=== PATIENT | male | born 2000 | race Caucasian/White ===

== ENCOUNTER 2023-10-02 06:13 | Day surgery (SDC) | payer BC, SELFPAY ==
[2023-10-02 13:59] VITALS: BMI 20.3
[2023-10-02 14:00] VITALS: BMI 20.3
[2023-10-02 14:01] VITALS: BP 135/79
[2023-10-02 16:49] VITALS: BP 114/64
[2023-10-02 17:00] VITALS: BP 115/51
[2023-10-02 17:15] VITALS: BP 110/64
== END 2023-10-02 17:23 | disposition home or self-care (01) ==
LOC: GI 06:13
PROVIDERS: ATTENDING PHYSICIAN Internal Medicine Gastroenterology
DX: K20.0 Eosinophilic esophagitis (principal)
CPT/HCPCS: 43239; 88305

== ENCOUNTER 2024-06-09 20:52 | Emergency (ER) | payer BC, SELFPAY ==
[2024-06-09 20:55] VITALS: BP 131/63
[2024-06-09 20:56] VITALS: BP 131/63
[2024-06-09 20:59] VITALS: BMI 19.2
[2024-06-09 21:00] VITALS: BP 132/92
--- NOTE | 2024-06-09 21:02 | ED.GENMED ---
History of Present Illness
General
Chief Complaint: Allergic Reaction
Source: patient, records, family and ambulance crew
Exam Limitations: none
Time Seen by Provider: 06/09/24 20:56
Nursing documentation reviewed up to this point in time: agreed with
History of Present Illness
History of Present Illness:
Patient is a 23-year-old male who presents to the emergency department after developing allergic reaction approximately 15 minutes after eating dinner. Patient had Posta that his mother realized after the episode that it was made from [employer] and
patient has a very sensitive peanut and shellfish allergy. Patient began to have problems breathing and swallowing with a diffuse pruritic rash. Patient uses Ventolin inhaler x 2. Paramedics were called and gave the patient 25 of Benadryl after
he received 25 of Benadryl at home. Patient was given a DuoNeb en route. Patient also had an EpiPen. Patient is feeling much better now.
Past History
Past History
ED Past Medical History: Asthma and Other (Seasonal allergies)
Social History
Tobacco: Non-smoker
Review of Systems
Review of Systems
All Other Systems: Not applicable
Phy Exam
Physical Exam
Physical Exam:
Physical Exam
General: mild distress, alert and appropriate, well nourished, well hydrated
HENT: Normocephalic, supple with no lymphadenopathy, no thyromegaly. Oropharynx clear
Eyes: Clear sclera, conjuctiva with injection bilaterally
Heart: Regular rhythm and rate. No S3, S4. No murmur.
Lungs: No respiratory distress, no stridor, lung sounds are coarse with an occasional end expiratory wheeze left greater than right but otherwise equal bilaterally
Abdomen: Soft, nontender, no organomegaly, BS good
Neuro: Alert and oriented x 3, CN II - XII intact, no motor focality, no cerebellar dysfunction
Skin: Mild diffuse erythematous rash
Psychiatric: well kept. interactive and cooperative
Extremities: No edema, cyanosis, tenderness, Good and equal peripheral pulses.
Scores
Heart Failure Risk
Heart Failure Risk Score: Not Applicable
Heart Score for Chest Pain Patients
STEMI patient?: Not applicable
Withdrawal Assessment of Alcohol
Withdrawal Assessment Completed?: Not applicable
Course
Orders/Labs/Results
Orders:
Orders
06/09/24 20:59
EKG [Electrocardiogram (*1)] Urgent
Reason for Study: Bradycardia / Tachycardia
EKG- Treatment ONCE
06/09/24 21:02
0.9% Sodium Chloride 1000 ml [Nss] 1,000 ml IV BOLUS
Dexamethasone Sod Phosphate [Decadron] 20 mg IV NOW STA
Famotidine [Pepcid] 20 mg IV NOW STA
Ipratropium/Albuterol Sulfate [Duoneb] 3 ml INH R NOW STA
Vital Signs
Initial and Last Documented VS:
Initial Vital Signs
Pulse Resp BP Pulse Ox
106 20 131/63 96
06/09/24 20:55 06/09/24 20:55 06/09/24 20:55 06/09/24 20:55
Last Documented Vital Signs
Temp Pulse Resp BP Pulse Ox
98.2 F 81 19 123/70 97
06/09/24 21:02 06/09/24 22:00 06/09/24 22:00 06/09/24 22:00 06/09/24 22:00
*Radiology
Radiology exam reviewed: other (na)
*Pulse Oximetry
Patient hypoxic: no
*EKG
Interpreted by ED Provider?: Yes
EKG Intrepretation Date: 06/09/24
EKG Intrepretation Time: 22:23
Interpretation: normal
Comparison EKG: no comparison EKG present
Heart Rate: 93
Rate: normal
Rhythm: sinus
[place]: indeterminate
Interval: normal interval
QRS Pattern: right bundle branch block (Incomplete)
Ischemia: no ischemia
*Bench Grinder Interpretation
Rate: tachycardiac
Interpretation: normal
Heart Rate: 102
Rhythm: sinus
*Critical Care Note
Total Time (30-74mins, 75-104mins- exclusive of procedures): Not Applicable
Update Note
Update Note:
Doing much better at this time. Both in regards to the symptoms and physical exam.
ED Attending Note
-
Portions of this chart may have been created with voice recognition software.� Occasional wrong word or��sound alike� substitutions may have occurred due to the inherent limitations of voice recognition software.
Discharge Plan
Departure
Patient Disposition: Home (Routine Discharge)
Date of Disposition: 06/09/24
Time of Disposition: 22:49
Patient with high blood pressure during this ER visit?: No
Condition: Good
Covid-19: Not Applicable
Discharge Problem:
Allergic reaction
Instructions: Allergic Reaction ED
Prescriptions:
New
epinephrine [EpiPen] 0.3 mg/0.3 mL Auto-Injector
0.3 mg IM .STAT PRN (Reason: anaphylaxis) Qty: 2 1RF
prednisone 20 mg tablet
20 mg PO BID Qty: 10 0RF
famotidine [Pepcid] 20 mg tablet
20 mg PO BID Qty: 10 0RF
No Action
montelukast [Singulair] 10 mg Tablet
10 mg PO DAILY
albuterol sulfate [Ventolin HFA] 90 mcg/actuation Hfa Aerosol Inhaler
1 puff INHALATION ONCE
budesonide-formoterol [Symbicort] 80-4.5 mcg/actuation Hfa Aerosol Inhaler
2 puff INHALATION BID
Referrals:
Hugh Edmond MD [Family Provider] - As needed
Interventions
Interventions:
*Risk Screen - Suicide Last Done: 06/09/24 21:02
*General Assessment Last Done: 06/09/24 21:02
*Neglect/Abuse Screening Last Done: 06/09/24 21:02
ED- Fall Risk Assessment Last Done: 06/09/24 21:05
*ED COVID-19 Vaccine History Last Done: 06/09/24 21:02
ED- Cardiac Assessment Last Done: 06/09/24 21:03
ED- Pulmonary Assessment Last Done: 06/09/24 21:03
ED-Skin Assessment Last Done: 06/09/24 21:03
Discharge Date and Time
Print Language: BELARUSIAN
[2024-06-09] MEDS: DUONEB 3 ML INH (21:07)
[2024-06-09] MEDS: PEPCID 20 MG IV (21:07)
[2024-06-09] MEDS: DECADRON 20 MG IV (21:07)
[2024-06-09] MEDS: NSS 1000 IV (21:08)
[2024-06-09 22:00] VITALS: BP 123/70
[2024-06-09 23:09] VITALS: BP 123/70
== END 2024-06-09 23:11 | disposition home or self-care (01) ==
LOC: EMR 20:52
PROVIDERS: EMERGENCY PHYSICIAN Emergency Medicine; FAMILY PHYSICIAN Internal Medicine Pulmonary Disease; OTHER PHYSICIAN Allergy & Immunology
DX: T78.1XXA Other adverse food reactions, not elsewhere classified, initial encounter (principal); X58.XXXA Exposure to other specified factors, initial encounter
CPT/HCPCS: 99284; 96374; 96375; 96361; 94640; 93005; 96360

== ENCOUNTER 2024-10-21 16:32 | Day surgery (SDC) | payer BC, SELFPAY ==
[2024-10-21] VITALS (7 sets, daily range): BP systolic 110–122; BP diastolic 54–80; BMI 18.8
[2024-10-21] MEDS: GlucaGen 1 MG IV ×2 (14:55→15:50)
--- NOTE | 2024-10-21 15:02 | ED.GENMED ---
History of Present Illness
<Matt Mendez PA-C - Last Filed: 10/21/24 18:58>
General
Chief Complaint: Esophageal Problem
Source: patient
Time Seen by Provider: 10/21/24 14:49
History of Present Illness
History of Present Illness:
24-year-old male with past medical history of eosinophilic esophagitis and asthma presenting to the ER after he was eating hot dogs around noon time when he felt as if he had an impacted food bolus and has been unable to pass the food bolus since.
Patient states that he vomited following but states it still feels as if there is still food bolus present. He notes that he is able to tolerate secretions but not able to eat or drink any time. Patient notes that he had this same issue about 9
months ago which required him to go for an endoscopy. He does report that he is supposed to be on a proton pump inhibitor however he has been noncompliant with this medication.
Past History
<Matt Mendez PA-C - Last Filed: 10/21/24 18:58>
Past History
ED Past Medical History: Asthma and Other (Seasonal allergies)
ED Past Surgical History: Orthopedic and Other
Social History
Tobacco: Non-smoker
Alcohol: Occasional
Drug: None
Personal: Single
Living: with family
Review of Systems
<Matt Mendez PA-C - Last Filed: 10/21/24 18:58>
Review of Systems
All Other Systems: ROS reviewed and negative except as documented in HPI and ROS
Phy Exam
<Matt Mendez PA-C - Last Filed: 10/21/24 18:58>
Physical Exam
Physical Exam:
GENERAL: Alert , in no apparent distress, no drooling/spitting, maintaining airway
EYE: conjunctiva clear
NECK: Supple
ENT: o/p clr, mmm.
CARDIAC: Regular rate and rhythm
LUNGS: Clear breath sounds bilaterally, no acute respiratory distress, no wheezes/rales/rhonchi
ABDOMEN: Soft, nontender, nondistended
NEUROLOGICAL: Alert and oriented
SKIN: Warm and dry, skin intact.
MUSCULOSKELETAL: well perfused.
PSYCH: Normal and appropriate interaction.
Scores
<Matt Mendez PA-C - Last Filed: 10/21/24 18:58>
Heart Failure Risk
Heart Failure Risk Score: Not Applicable
Heart Score for Chest Pain Patients
STEMI patient?: Not applicable
Withdrawal Assessment of Alcohol
Withdrawal Assessment Completed?: Not applicable
Course
<Matt Mendez PA-C - Last Filed: 10/21/24 18:58>
Orders/Labs/Results
Orders:
Orders
10/21/24 14:49
Glucagon [GlucaGen] 1 mg IV NOW STA
10/21/24 15:47
Glucagon [GlucaGen] 1 mg IV NOW STA
10/21/24 17:21
Rocuronium [place] [Rocuronium] 50 mg .ROUTE .STK-MED ONE
Succinylcholine Chloride [Succinylcholine] 200 mg .ROUTE .STK-MED ONE
10/21/24 17:22
Propofol [Diprivan] 20 ml .ROUTE .STK-MED
Vital Signs
Initial and Last Documented VS:
Initial Vital Signs
Temp Pulse Resp BP Pulse Ox
97.9 F 96 16 117/80 97
10/21/24 14:34 10/21/24 14:34 10/21/24 14:34 10/21/24 14:34 10/21/24 14:34
Last Documented Vital Signs
Temp Pulse Resp BP Pulse Ox
99.0 F 73 100 122/64 100
10/21/24 18:02 10/21/24 18:02 10/21/24 18:02 10/21/24 18:02 10/21/24 17:50
<Chaparro Mayberry MD - Last Filed: 10/21/24 17:44>
Orders/Labs/Results
Orders:
Orders
10/21/24 14:49
Glucagon [GlucaGen] 1 mg IV NOW STA
10/21/24 15:47
Glucagon [GlucaGen] 1 mg IV NOW STA
10/21/24 17:21
Rocuronium [place] [Rocuronium] 50 mg .ROUTE .STK-MED ONE
Succinylcholine Chloride [Succinylcholine] 200 mg .ROUTE .STK-MED ONE
10/21/24 17:22
Propofol [Diprivan] 20 ml .ROUTE .STK-MED
Vital Signs
Initial and Last Documented VS:
Initial Vital Signs
Temp Pulse Resp BP Pulse Ox
97.9 F 96 16 117/80 97
10/21/24 14:34 10/21/24 14:34 10/21/24 14:34 10/21/24 14:34 10/21/24 14:34
Last Documented Vital Signs
Temp Pulse Resp BP Pulse Ox
99.0 F 73 100 122/64 100
10/21/24 18:02 10/21/24 18:02 10/21/24 18:02 10/21/24 18:02 10/21/24 17:50
<Matt Mendez PA-C - Last Filed: 10/21/24 18:58>
MDM/Problems Addressed
Differential Diagnosis Includes:
Eosinophilic esophagitis, esophageal stricture, food bolus impaction, GERD/gastritis
MDM/Problems Addressed:
24-year-old male presenting to the ER for reevaluation of suspected food bolus impaction. History of similar. Noncompliant with proton pump inhibitor. Patient reports that he did vomit but maintains the foreign body sensation presently.
Tolerating/maintaining airway. Will treat with glucagon and reassess following. Disposition pending
<Matt Mendez PA-C - Last Filed: 10/21/24 18:58>
*Pulse Oximetry
Patient hypoxic: no
*Critical Care Note
Total Time (30-74mins, 75-104mins- exclusive of procedures): Not Applicable
Data Reviewed
Review of Other/Old Records Reveals: Labs, Records and Testing
Source: patient and records
<Matt Mendez PA-C - Last Filed: 10/21/24 18:58>
Patient Management
Discussion with other providers: Pile Driver Operator Helper
Escalation/DeEscalation of care consider admission/obs:
Patient without any relief following first dose of glucagon. He was unable to tolerate p.o. Second dose given. GI to see the patient in the room with plan to take patient to endoscopy suite for food bolus removal. Patient to be disposition from
recovery room and outpatient follow-up as needed.
ED Attending Note
<Matt Mendez PA-C - Last Filed: 10/21/24 18:58>
-
Portions of this chart may have been created with voice recognition software.� Occasional wrong word or��sound alike� substitutions may have occurred due to the inherent limitations of voice recognition software.
<Chaparro Mayberry MD - Last Filed: 10/21/24 17:44>
ED Attending Note
Patient seen and examined by attending physician: Yes
ED Attending Note:
I have seen and evaluated the patient with a [id number] encounter. I have spoken to the advance practicer provider and involved in the medical history, the physical exam, medical decision making.
Evaluation and management service: agree unless noted differently below.
Results interpretation: agree unless noted differently below.
Focused HPI: 24-year-old male with history as noted presents for evaluation of esophageal food bolus. Patient reports that he was eating a hot dog and felt that it got stuck in the middle of his esophagus when he swallowed. He has vomited multiple
times but cannot bring up the food bolus. Has not been able to tolerate anything by mouth since. Similar symptoms in the past requiring endoscopy�previously seen by Dr. Smith. Denies any coughing or respiratory issues.
Physical exam: Awake alert no distress. Sitting up holding emesis bag spitting secretions into it. Lungs sound clear to auscultation bilaterally.
Medical Decision Makin-year-old male presents with esophageal food bolus. Trial of glucagon x 2 unsuccessful. GI contacted, will take to endoscopy suite.
Discharge Plan
Departure
Patient Disposition: GI LAB
Date of Disposition: 10/21/24
Time of Disposition: 16:06
Presentation/result/management discussed w/ accepting MD/DO: Ned
Discharge Problem:
Food impaction of esophagus
Prescriptions:
No Action
montelukast [Singulair] 10 mg Tablet
10 mg PO DAILY
albuterol sulfate [Ventolin HFA] 90 mcg/actuation Hfa Aerosol Inhaler
1 puff INHALATION ONCE
budesonide-formoterol [Symbicort] 80-4.5 mcg/actuation Hfa Aerosol Inhaler
2 puff INHALATION BID
epinephrine [EpiPen] 0.3 mg/0.3 mL Auto-Injector
0.3 mg IM .STAT PRN (Reason: anaphylaxis) Qty: 2 1RF
prednisone 20 mg tablet
20 mg PO BID Qty: 10 0RF
famotidine [Pepcid] 20 mg tablet
20 mg PO BID Qty: 10 0RF
Interventions
Interventions:
*Risk Screen - Suicide Last Done: 10/21/24 14:54
*General Assessment Last Done: 10/21/24 14:54
*Neglect/Abuse Screening Last Done: 10/21/24 14:54
*ED- Fall Risk Assessment Last Done: 10/21/24 14:54
*ED COVID-19 Vaccine History Last Done: 10/21/24 14:54
*Nursing Disposition Last Done: 10/21/24 16:32
ED-EENT Assessment Last Done: 10/21/24 14:54
WD-Uumunh-Estpuiklrk Assessment Last Done: 10/21/24 14:54
Discharge Date and Time
Discharge Date/Time: 10/21/24 16:32
Print Language: NAMIBIAN
--- NOTE | 2024-10-21 16:12 | CON.GI ---
Consultation
-
Date/Time Consultation Performed: 10/21/2024
Performing Provider: Dilshad Marino MD
Reason for Consultation: food impaction
Medical History
Chief Complaint / HPI
Chief Complaint: dysphagia
History of Present Illness:
The patient is a 24-year-old male with past medical history as noted with food infection. He has a history of impaction secondary to eosinophilic esophagitis. He had an endoscopy with Dr. Smith more than a year ago with food impaction and subsequent
endoscopy confirmed eosinophilic esophagitis. He usually follows up with a bandoleer packer in [place] though admittedly has been noncompliant with medications does not follow-up regularly. He was on illumination diet for the past 6 months
after his last episode and had been doing well though was visiting family in [place] and off his lamination diet. He denies any chest pain or shortness of breath. He is unable to tolerate secretions after glucagon x 2. He does take inhalers for
asthma though otherwise denies any other major medical issues.
Past Medical History
Past Medical History: Other (Eosinophilic esophagitis, asthma)
Past Surgical History: None
Social History
Tobacco: Non-Smoker
Alcohol: None
Family History
Family History: Reviewed & Not Pertinent
Allergies / Home Medications
Allergy/AdvReac Type Severity Reaction Status Date / Time
Latex, Natural Rubber Allergy Mild Rash Verified 10/21/24 14:34
nut - unspecified Allergy Anaphylaxis Verified 10/21/24 14:34
peanut Allergy Anaphylaxis Verified 10/21/24 14:34
shellfish derived Allergy Hives Verified 10/21/24 14:34
�Medication �Instructions �Recorded
albuterol sulfate 90 mcg/actuation 1 puff inhalation ONCE 10/02/23
aerosol inhaler (Ventolin HFA)
budesonide-formoterol HFA 80 2 puff inhalation BID 10/02/23
mcg-4.5 mcg/actuation aerosol
inhaler (Symbicort)
montelukast 10 mg tablet 10 mg PO DAILY 10/02/23
(Singulair)
epinephrine 0.3 mg/0.3 mL 0.3 mg (0.3 mL) IM .STAT PRN 06/09/24
injection, auto-injector (EpiPen) anaphylaxis #2 ea
famotidine 20 mg tablet (Pepcid) 20 mg PO BID #10 tabs 06/09/24
prednisone 20 mg tablet 20 mg PO BID #10 tabs 06/09/24
Review of Systems
-
All other systems: A 12 pt ROS was Negative except as stated above in HPI
Vital Signs
Temp Pulse Resp BP Pulse Ox
97.9 F 96 16 117/80 97
10/21/24 14:34 10/21/24 14:34 10/21/24 14:34 10/21/24 14:34 10/21/24 14:34
Physical Exam
Exam
General: NAD
HEENT: MMM, anicteric, no lymphadenopathy
Heart: Regular, no murmurs
Lungs: CTA bilaterally
Abdomen: normal bowel sounds, soft, no tenderness, no rebound or guarding, no masses, bruits or ascites
Extremeties: no edema
Skin: no rashes
Results
Diagnostic Image Results:
Prior GI Procedures:
EGD:
Colonoscopy:
Assessment / Plan
-
1. Food impaction: With known eosinophilic esophagitis, unable to tolerate secretions now status post glucagon x 2. Will plan urgent EGD for removal and advised following up with his primary bandoleer packer to discuss other therapeutics in the
future.
-
-
Thank you for consultation and allowing me to participate in the patient's care. Please call the vision therapist GI physician during the after hours with any questions or concerns.
== END 2024-10-21 18:02 | disposition home or self-care (01) ==
LOC: SDS 16:32
PROVIDERS: ATTENDING PHYSICIAN Internal Medicine Gastroenterology; EMERGENCY PHYSICIAN Emergency Medicine; FAMILY PHYSICIAN Nurse Practitioner Adult Health
DX: T18.108A Unspecified foreign body in esophagus causing other injury, initial encounter (principal); T18.128A Food in esophagus causing other injury, initial encounter; W44.F3XA Food entering into or through a natural orifice, initial encounter
CPT/HCPCS: 43247; 96374; 96375; 99285; J1610